=== PATIENT | female | born 1975 | race American Indian/Alaskan Native ===

== ENCOUNTER 2023-04-27 09:30 | Emergency (ER) | payer SELFPAY ==
[2023-04-27] VITALS (10 sets, daily range): BP systolic 146–212; BP diastolic 102–185; PULSE 72–79; RESP 15–22; TEMP 36.6; O2SAT 98–100; BMI 25.0
--- NOTE | 2023-04-27 11:30 | CT_ITS ---
STUDY: CT BRAIN WITHOUT CONTRAST REASON FOR EXAM: Female, 47 years old. Hypertensive urgency RADIATION DOSAGE (If Supplied By Facility): CTDIvol = ( 44.99 ) mGy, DLP = ( 779.24 ) mGycm TECHNIQUE: Transaxial CT imaging of the brain was performed without administration of intravenous contrast material. Individualized dose optimization techniques were used for this CT. COMPARISON: No relevant priors. FINDINGS: Normal soft tissue structures. Normal calvarium. Normal size ventricles and extra-axial spaces for the patient''s age. Normal white matter tracts of the cerebral hemispheres. Normal basal ganglia and thalami. Normal brainstem. Normal cerebellum. There is no intracranial hemorrhage. There are no findings of an acute ischemic infarction. Normal visualized paranasal sinuses. CT/Brain/Head without Contrast IMPRESSION: Normal unenhanced CT scan of the brain. Electronically Signed: Tee Mario MD at 12:49 EST ,
--- NOTE | 2023-04-27 11:33 | NURSING ---
NO OLD EKGS
--- NOTE | 2023-04-27 11:45 | EX.ED.DYSGE1 ---
HPI History of Present Illness Chief Complaint: Hypertension Informant: patient Narrative Narrative: 47-year-old female presenting to the emergency room for hypertension. Patient states that she moved to the area of 1 month ago. Prior to moving she saw a doctor who placed her on carvedilol 6.25 mg daily. She states that yesterday she went to her work's clinic where her right eye vision was noted to be poor and she tells me she is supposed to see an eye doctor. Today she had her blood pressure checked and it was significantly elevated and they told her to come to the emergency department. She does note a right frontal headache. No chest pain or shortness of breath. She denies leg swelling. [facility] Medical History (Updated 04/27/23 @ 13:[address] Jd Gross DO) Hypertension Home Medications carvedilol 12.5 mg tablet (Coreg) 12.5 mg PO Q12H #60 tabs 04/27/23 [Rx Last Taken Unknown] lisinopril 10 mg-hydrochlorothiazide 12.5 mg tablet 1 tab PO DAILY #30 tabs 04/27/23 [Rx Last Taken Unknown] Social History Smoking Status: Never smoker ROS [facility] ED Constitutional Constitutional ED: Denies chills, fever(s) or weight loss Eyes Eyes: Reports other Details: Patient reports her visual acuity in the right eye is poor ; Denies blurry vision, change in vision or diplopia ENT ENT ED: Denies ear pain, rhinorrhea or sore throat Cardiovascular Cardiovascular: Denies chest pain, orthopnea, palpitations or racing heartbeat Respiratory/Chest Respiratory/Chest: Denies cough, dyspnea or orthopnea Gastrointestinal Gastrointestinal: Denies abdominal pain, diarrhea, nausea or vomiting Genitourinary Genitourinary ED: Denies dysuria, hematuria or urinary frequency Musculoskeletal Musculoskeletal: Denies arthralgias or myalgias Integumentary Denies abscess or rash Neurologic Neurologic: Reports headache(s); Denies weakness Psychiatric Psychiatric: Denies anxiety, depression, suicidal ideation or suicidal thoughts Endocrine Endocrinology: Denies polydipsia, polyphagia or polyuria Allergic/Immunologic Allergic/Immunologic ED: Denies mouth swelling, tongue swelling or urticaria EXAM Physical Exam Const Vital Signs: 04/27/23 09:32 04/27/23 10:30 04/27/23 12:56 Temperature 98 F Temperature Source Temporal Pulse Rate 73 75 Respiratory Rate 18 16 Respiratory Effort Respiratory Pattern Blood Pressure 212/185 H 176/113 H 173/102 H Blood Pressure Mean 194 134 125 Pulse Ox 100 100 99 Oxygen Delivery Method Room Air Room Air Room Air 04/27/23 13:04 04/27/23 13:27 04/27/23 12:58 Temperature Temperature Source Pulse Rate 72 75 Respiratory Rate 15 16 Respiratory Effort Normal Non-Labored Respiratory Pattern Normal Blood Pressure 161/108 H Blood Pressure Mean 125 Pulse Ox 99 99 Oxygen Delivery Method Room Air 04/27/23 13:00 04/27/23 13:10 04/27/23 13:15 Temperature Temperature Source Pulse Rate 79 74 76 Respiratory Rate 16 15 16 Respiratory Effort Respiratory Pattern Blood Pressure 161/108 H 152/103 H Blood Pressure Mean 125 115 Pulse Ox 99 98 99 Oxygen Delivery Method 04/27/23 13:20 04/27/23 14:06 Temperature Temperature Source Pulse Rate 77 Respiratory Rate 22 H Respiratory Effort Respiratory Pattern Blood Pressure 146/102 H Blood Pressure Mean 116 Pulse Ox 99 Oxygen Delivery Method Positive well nourished and well developed General Appearance ED: well developed HEENT Reports normocephalic, head/scalp atraumatic and moist mucous membranes Eyes PERRL and EOMs intact bilaterally Neck no lymphadenopathy, supple and no JVD Resp normal respiratory effort and clear to auscultation bilaterally Cardio regular rate, regular rhythm and no murmurs GI normal to inspection, nondistended, normoactive bowel sounds and non-tender Palpation: soft Back/Spine no CVA tenderness and normal ROM Extremity normal to inspection General Extremety ED: Negative for edema General Extremity: Negative for edema Neuro oriented x3 and CN's II-XII intact bilaterally Sensorium / Orientation: alert Motor Exam: strength 5/5 throughout Psych mental status grossly normal Mood & Affect: Negative for depressed or tearful Skin no rashes or lesions noted and no wounds MDM MDM MDM Narrative Medical decision making narrative: I changed the patient from a small cuff to a regular adult cuff. Right is reading 232/117 left 223/128. Patient was given a dose of clonidine blood pressure improved 146/102. Basic blood work shows no obvious endorgan damage. CT of the brain negative. Troponin negative urinalysis with no protein in the urine. Liver enzymes negative creatinine is normal 1.01. Hemoglobin 11.8 white count 6.6 and platelet count of 328. My independent interpretation of the chest x-ray is normal mediastinal silhouette. No significant cardiomegaly or widened mediastinum noted. At this point I am not seeing evidence of endorgan damage. Her blood pressure is improved she feels good. I have her increase her carvedilol to 12.5 mg twice a day (this is up from 6.25 mg twice a day). I will also add in lisinopril HCTZ. I recommended that the patient obtain primary care. She is unsure about her health insurance she can call their number and find out which physicians in the area do take her insurance. Also provided with a total of 3 primary care doctors that she can call their offices. I recommend she monitor her blood pressure. She was advised that she may feel poorly if her blood pressure drops too quickly from the hypertensive range. She was advised to return if any concerns or feels worse. I did speak with the patient's friend on the phone who has been instrumental in helping her get some care. History & Record Review Discussion w/independent historian: Patient and Friend Lab Data Attestation: I reviewed the patient's lab results. Labs: Laboratory Results - last 24 hr 04/27/23 04/27/23 11:55 12:08 WBC 6.6 RBC 4.91 Hgb 11.8 L Hct 36.8 L MCV 74.9 L MCH 24.0 L MCHC 32.1 RDW Std Deviation 42.8 RDW Coeff of Sarah 16.0 H Plt Count 328 MPV 9.8 Immature Gran % (Auto) 0.200 Neut % (Auto) 52.1 Lymph % (Auto) 36.1 Rowan % (Auto) 8.2 Eos % (Auto) 2.6 Baso % (Auto) 0.8 Absolute Neuts (auto) 3.4 Absolute Lymphs (auto) 2.37 Nucleated RBC % 0 Sodium 136 Potassium 3.9 Chloride 106 Carbon Dioxide 27.0 Anion Gap 3 L BUN 13 Creatinine 1.01 Estim Creat Clear Calc 65.85 Est GFR (MDRD) Af Amer 76 Est GFR (MDRD) Non-Af 63 BUN/Creatinine Ratio 12.9 Glucose 88 Calcium 9.2 Total Bilirubin 0.30 AST 14 L ALT 24 Alkaline Phosphatase 91 Troponin I High Sens 27 Total Protein 8.6 H Albumin 3.6 Globulin 5.0 H Albumin/Globulin Ratio 0.7 L Serum , Qual NEGATIVE Urine Color Straw Urine Clarity Clear Urine pH 8.0 Ur Specific [place] 1.010 Urine Protein Negative Urine Glucose (UA) Normal Urine Ketones Negative Urine Occult Blood Negative Urine Nitrite Negative Urine Bilirubin Negative Urine Urobilinogen Normal Ur Leukocyte Esterase Negative Urine RBC 0 SEEN Urine WBC 0 SEEN Ur Squamous Epith Cells 0-5 SEEN Urine Bacteria 0 SEEN Urine Mucus 0 SEEN Radiography Diagnostic Testing: Clinical Impression(s) from Imaging Studies Brain CT 04/27/23 11:30 IMPRESSION: Normal unenhanced CT scan of the brain. Electronically Signed: Tee Mario MD at 12:49 EST , Chest X-Ray 04/27/23 12:22 IMPRESSION: No acute abnormality is seen. Electronically Signed: Tee Mario MD at 12:50 EST , EKG Initial EKG: Attestation: I personally reviewed and interpreted this EKG as follows: Comments: Normal sinus rhythm with a ventricular rate of 71 bpm Discharge Plan Triage Chief Complaint: Hypertension ED Provider: Jd Gross Dx/Rx/DC Orders Clinical Impression: Hypertension Instructions: ED High Blood Pressure Hypertension Prescriptions: New carvedilol [Coreg] 12.5 mg tablet 12.5 mg PO Q12H Qty: 60 0RF Rx Instructions: must administer with a meal/food lisinopril-hydrochlorothiazide 10-12.5 mg tablet 1 tab PO DAILY Qty: 30 0RF Primary Care Provider: Care Physician,No Primary Referrals: Nica Serrano MD [Med Staff - Sales Enablement Consultant] - As soon as possible García Alexandra MD [Med Staff - Sales Enablement Consultant] - As soon as possible Brad Rebolledo MD [Med Staff - Active Staff] - As soon as possible Care Physician,No Primary [Primary Care Provider] - Activity Restrictions/Additional Instructions: I highly recommend that you monitor your blood pressure and record it every day for the next couple weeks. It would be important for your doctor to see your blood pressure and response to treatment. You most likely need to call your insurance company to find out what doctors in the area do take your health insurance. I have given you several names above. I do not know if they will take your insurance or not but they are worth calling We are going to double your carvedilol dose to 12.5 mg twice a day. I am also adding lisinopril HCTZ to your medications that you will take once a day. Disposition Disposition: Home, Self Care Discharge Date/Time: 04/27/23 14:07
--- NOTE | 2023-04-27 11:47 | NURSING ---
NO OLD EKGS
[2023-04-27 12:04] LABS: Absolute Lymphocyte Count 2.37 X10^3/uL (0.83-4.51); Absolute Neutrophil Count 3.4 X10^3/uL (2.0-7.7); Basophil# 0.05 X10^3/uL; Basophil% 0.8 % (0-1); Eosinophil# 0.17 X10^3/uL; Eosinophils% 2.6 % (0-5); Hematocrit 36.8 % (37-47); Hemoglobin 11.8 g/dL (12.0-15.0); Lymphocyte # 2.37 X10^3/ul (0.83-4.51); Lymphocyte % 36.1 % (19-41); Mean Corp Hgb Conc 32.1 g/dL (32-36); Mean Corpuscular Volume 74.9 fL (81-99); Mean Platelet Vol. 9.8 fl (6.2-12.0); Monocyte# 0.54 X10^3/uL; Monocyte% 8.2 % (0-10); NRBC Flagged by Analyzer 0 % (0-5); Neutrophil # 3.43 X10^3/uL (2.7-7.7); Neutrophil % 52.1 % (47-70); Platelet Count 328 K/mm3 (150-450); RBC Distribution Width SD 42.8 fl (35.1-43.9); Red Blood Count 4.91 M/mm3 (4.2-5.4); White Blood Count 6.6 K/mm3 (4.4-11.0)
[2023-04-27] MEDS: cloNIDine HCl 0.1 MG Tablet 0.100000000000000006 MG PO (12:11)
[2023-04-27 12:12] LABS: Bacteria 0 SEEN /hpf (None Seen); Mucous, Urine 0 SEEN /hpf (<or=2+); Red Blood Cells-Urine 0 SEEN /hpf (0-5); White Blood Cells 0 SEEN /hpf (0-5)
[2023-04-27 12:18] LABS: Color, Urine Straw (Yellow); Glucose, Dipstick Normal (Normal); Ketone-Dipstick Negative (Negative); Leukocyte Esterase-Dipstick Negative /ul (Negative); Nitrite-Dipstick Negative (Negative); Occult Blood-Urine Negative /ul (Negative); Protein-Dipstick Negative (Negative); Urine Bilirubin Dipstick Negative (Negative); Urine Clarity Clear (Clear); Urine Urobilinogen Normal (Normal)
--- NOTE | 2023-04-27 12:22 | RAD_ITS ---
STUDY: X-RAY CHEST REASON FOR EXAM: Female, 47 years old. Hypertensive urgency TECHNIQUE: Single AP portable view of the chest. COMPARISON: None. FINDINGS: EKG electrodes are seen. The lungs are clear and expanded. There is no demonstrated pleural abnormality. Normal size heart. Normal mediastinum and andree. Normal visualized pulmonary arteries. Normal visualized aortic arch and descending thoracic aorta. There is a mild levoscoliosis of the thoracic spine. Normal visualized ribs, clavicles, and shoulders. There is no demonstrated abnormality of the visualized soft tissue structures of the upper abdomen. RAD/Chest 1 View (Portable) IMPRESSION: No acute abnormality is seen. Electronically Signed: Tee Mario MD at 12:50 EST ,
[2023-04-27 12:24] LABS: Squamous Epithelial Cells - UA 0-5 SEEN /hpf (5-10)
[2023-04-27 12:27] LABS: ALB/GLOB Ratio 0.7 RATIO (0.9-2.4); AST(SGOT) 14 U/L (15-37); Alanine Aminotransfer ALT/SGPT 24 U/L (13-56); Albumin, Serum 3.6 g/dL (3.2-5.0); Alkaline Phosphatase 91 U/L (45-117); Anion Gap 3 (5-15); BUN 13 mg/dL (7-18); BUN/Creat Ratio 12.9 RATIO (10-20); Calcium,Total 9.2 mg/dL (8.5-10.1); Chloride 106 mmol/L (98-107); Creatinine, Serum 1.01 mg/dL (0.55-1.02); EST Glomerular Filtration Rate 63 mL/min (>60); Est Glom Filt Rate - Afr Amer 76 mL/min (>60); Estimated Creatinine Clearance 65.85 ml/min; Glucose 88 mg/dL (74-106); Potassium 3.9 mmol/L (3.5-5.1); Protein, Total 8.6 g/dL (6.4-8.2); Sodium Level 136 mmol/L (136-145); Troponin-I HS 27 pg/mL (3.0-54.0)
[2023-04-27 12:28] LABS: Internal QC Validated? YES +Cl - CLEAR BKGD; Pregnancy, Serum, hCG Quali. NEGATIVE Negative
== END 2023-04-27 14:07 | disposition home or self-care (01) ==
PROVIDERS: Emergency Provider Emergency Medicine; Visit Provider Emergency Medicine
DX: I10 Essential (primary) hypertension (principal); Z79.899 Other long term (current) drug therapy
CPT/HCPCS: 70450; 71045; 80053; 81001; 84484; 84703; 85025; 93005; 99284; A4216

== ENCOUNTER 2023-12-04 17:59 | Emergency (ER) | payer SELFPAY ==
[2023-12-04 18:01] VITALS: BP 208/110; PULSE 102; RESP 18; TEMP 36.7; O2SAT 99; BMI 25.4
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
--- NOTE | 2023-12-04 19:25 | ED.RN ---
DC vitals 222/126. Dr. Driscoll order to monitor pt for 20 minutes, then medication will be administered before D/C.
--- NOTE | 2023-12-04 19:40 | RAD_ITS ---
INDICATION: injury EXAMINATION/TECHNIQUE: X-RAY - RIGHT XR Knee Complete 4 Views or More COMPARISON: None. FINDINGS: No acute fracture or malalignment. No significant degenerative changes are seen. No joint effusion. The soft tissues are unremarkable. RAD/Knee 4 or More Views IMPRESSION: No acute radiographic abnormalities. Electronically Signed: Tolu Orellana MD at 19:16 EDT ,
[2023-12-04] MEDS: Lisinopril 20 MG Tablet PO (20:35)
[2023-12-04 21:08] VITALS: BP 188/118; PULSE 80; RESP 18; TEMP 36.8; O2SAT 99
== END 2023-12-04 21:10 | disposition home or self-care (01) ==
PROVIDERS: Emergency Provider Emergency Medicine; Visit Provider Emergency Medicine
DX: S83.91XA Sprain of unspecified site of right knee, initial encounter (principal); Y04.8XXA Assault by other bodily force, initial encounter
CPT/HCPCS: 73564; 99283